=== PATIENT | female | born 1965 | race Caucasian/White ===

== ENCOUNTER → 2018-04-06 16:57 | Outpatient (CLI) | payer OTHER, SELFPAY ==
--- NOTE | 2018-04-06 | DI.MRI.S_ITS ---
PROCEDURE: MR WRIST RT WO CON INDICATIONS: DISPLACED FRACTURE OF TRIQUETRUM TECHNIQUE: Noncontrast coronal proton density fast spin echo and T2 fast spin echo with fat saturation; coronal 3-D gradient echo, axial T1 spin echo and T2 fast spin echo with fat saturation, sagittal T1 spin echo through the wrist. COMPARISON: None. FINDINGS: Image quality: Excellent. Bones and cartilage: Focal marrow edema is seen involving the triquetral image 7 series 3, also the lunate. This may represent small fractures however are not well seen by MR and could be confirmed with dedicated radiographs or CT. Differential includes marrow contusion. Carpal ligaments: The scapholunate and lunotriquetral ligaments appear intact. There is thickening of the dorsal joint capsule probably representing sprain of the dorsal radiocarpal and dorsal scaphotriquetral ligament tear. There is also intra-substance signal change and T2 hyperintensity. Triangular fibrocartilage complex: The triangular fibrocartilage appears intact. The adjacent meniscal homolog appears normal in the absence of intra-articular contrast. The extensor carpi ulnaris tendon is normal in location and morphology. Tendons and soft tissues: The carpal tunnel structures appear normal, including the median nerve. The ulnar nerve appears normal within Guyon's canal. All six extensor tendon compartments demonstrate normal morphology, without pathologic tendon sheath fluid. 9 mm ganglion cyst seen at the level of the carpus adjacent to the triquetral image 10 series 3, image 14 series 8. Additional ganglion cyst present at the radial styloid and distal volar radial margin at the attachments of the radioscaphocapitate and long radiolunate ligaments IMPRESSION: Subcentimeter foci of marrow edema involving the triquetral and lunate. While these could be related to marrow contusions or small fractures, a discrete fracture fragment or fracture line is not well characterized by MR, and could be further evaluated with dedicated radiographs or CT as needed. Acute sprain of the dorsal extrinsic ligaments (dorsal scaphotriquetral and dorsal radiocarpal ligament) Intrinsic ligaments appear grossly intact although this be confirmed with MR arthrography if clinically warranted. TFCC appears grossly intact. Small ganglion cyst adjacent to the triquetral. Additional ganglion cyst seen at the volar joint capsule including the radial attachments of the radioscaphocapitate and long radiolunate ligaments. Cannot exclude sprain although technically unknown age Dictated by: Ghanshyam Simmons M.D. on 04/07/2018 at 8:26 Approved by: Ghanshyam Simmons M.D. on 04/07/2018 at 8:42
== END ==
PROVIDERS: Visit Provider Orthopaedic Surgery Sports Medicine
DX: S62.111A Displaced fracture of triquetrum [cuneiform] bone, right wrist, initial encounter for closed fracture (principal); M67.431 Ganglion, right wrist
CPT/HCPCS: 73221

== ENCOUNTER → 2021-08-27 09:34 | Outpatient (CLI) | payer OTHER, SELFPAY ==
--- NOTE | 2021-08-27 | DI.NM.S_ITS ---
PROCEDURE: NM PHONG PERF SPECT R&S PHARM Rest and pharmacological stress myocardial perfusion SPECT with gated imaging and ejection fraction RADIOPHARMACEUTICAL: 24.5 mCi Tc-99m tetrafosmin IV at rest and 26.6 mCi Tc-99m tetrafosmin IV at peak effect of pharmacological stress. [id number] was performed. INDICATIONS: Other chest pain TECHNIQUE: Radiopharmaceutical was injected at peak stress test, and also at rest. SPECT images were obtained. SPECT myocardial perfusion images were displayed in short axis, horizontal long axis, and vertical long axis views. Gated images were reviewed using [employer] software. COMPARISON: None. CARDIAC STRESS: A pharmacologic stress test was performed under the supervision of an attending staff, using an infusion of lexiscan 0.4mg IV X1. Hemodynamic data: There is normal blood pressure and heart rate response to pharmacologic stress. Symptoms: The patient denied anginal chest pain. Aminophylline: none EKG: No diagnostic changes of ischemia; no ectopy. FINDINGS: Raw data: There is good myocardial uptake of radiotracer. No significant motion artifacts. Left ventricle function: Gated images demonstrate normal left ventricular wall thickening. No segmental wall motion abnormalities. No transient ischemic dilation; TID is 1.08 (normal less than 1.3). Left ventricle resting end diastolic volume is 125 mL. Left ventricle stress ejection fraction is 74%; normal range is above 45%. Myocardial perfusion: There is a very mild apical defect that is fixed suggesting apical thinning artifact given normal wall motion but old non-transmural infarction can't be excluded. No ischemia. SSS 2. No prone images done as patient unable. IMPRESSION: Low risk, probably normal pharm nuclear stress test. 1) There is a very mild fixed apical defect suggesting apical thinning artifact given normal wall motion but old non-transmural infarction can't be excluded. No ischemia. SSS 2. No prone images done as patient unable. 2) Normal left ventricular size, wall motion, and systolic function (EF post stress 74%). 3) No ST changes with lexican. 4) No angina during the study. 5) No prior nuclear stress test available for comparison. Dictated by: Martine Russell MD on 08/28/2021 at 12:58 Approved by: Martine Russell MD on 08/28/2021 at 13:03
[2021-08-27 13:50] LABS: COVID19 -Nasal RAPID Negative (Negative)
== END ==
PROVIDERS: Radiology Diagnostic Radiology; PCP Internal Medicine; Referring Provider Internal Medicine; Visit Provider Internal Medicine
DX: R07.89 Other chest pain (principal); Z20.822 Contact with and (suspected) exposure to COVID-19
CPT/HCPCS: 78452; 87635; 93017; A9502; J2785